=== PATIENT | male | born 1985 | race African-American/Black ===

== ENCOUNTER 2021-05-13 04:14 | Emergency (ER) | payer BC, SELFPAY ==
[2021-05-13 04:35] LABS: #Monocytes 0.4 10x3/uL (0.0-1.1); #Neutrophils 5.2 10x3/uL (1.5-8.4); %Basophils 0.4 % (0.0-2.0); %Eosinophils 0.4 % (0.0-6.0); %Lymphocytes 22.3 % (18.0-47.0); %Monocytes 5.6 % (0.0-10.0); %Neutrophils 70.1 % (40.0-75.0); Hemoglobin 13.6 g/dL (13.5-17.5); Mean Corpuscular HGB CONC 32.2 g/dL (32.0-36.0); Mean Corpuscular Hemoglobin 29.3 pg (27.0-33.0); Mean Corpuscular Volume 90.9 fl (81.2-95.1); Mean Platelet Volume 9.8 fl (7.4-10.4); Platelet Count 359 10x3/uL (150-450); RBC Distribution Width 12.3 % (11.5-14.5); Red Blood Cell (RBC) Count 4.64 10x6/uL (4.32-5.72); White Blood Cell (WBC) Count 7.4 10x3/uL (3.5-10.5)
[2021-05-13 06:01] LABS: Acetaminophen Less than 6.0 mcg/mL (10.0-30.0); Alcohol 190 mg/dL (Less than 10); CK (CPK) 308 U/L (30-200); Salicylate Less than 8.0 mg/dL (15.0-30.0)
[2021-05-13 06:02] LABS: ALT (SGPT) 44 U/L (8-55); AST (SGOT) 25 U/L (5-34); Alkaline Phosphatase 76 U/L (40-110); Anion Gap 13 mmol/L (10-20); BUN (Urea Nitrogen) 8 mg/dL (8.9-20.6); Bilirubin, Total 0.2 mg/dL (0.2-1.2); Calc. Creatinine Clearance 0 mL/min (70-130); Calcium 8.5 mg/dL (7.8-10.44); Carbon Dioxide 23 mmol/L (22-29); Chloride 108 mmol/L (98-107); Globulin 4.4 g/dL (2.4-3.5); Glucose 132 mg/dL (70-105); Magnesium 2.2 mg/dL (1.6-2.6); Potassium 4.6 mmol/L (3.5-5.1); Protein, Total 8.4 g/dL (6.0-8.3); Sodium 139 mmol/L (136-145)
[2021-05-13] MEDS ORDERED: Ampicillin/Sulbactam 1.5 GM in Sodium Chloride 0.9% 100 ML IVPB SCH (07:00)
== END 2021-05-13 12:43 | disposition home or self-care (01) ==
LOC: EDBD 04:14 → CSHERS 04:14
DX: F10.129 Alcohol abuse with intoxication, unspecified (principal)
CPT/HCPCS: 36415; 70450; 71045; 80053; 80307; 82550; 83735; 84443; 84484; 85025; 93005; 94760; 96365; J0295; J3490

== ENCOUNTER 2022-03-27 10:00 | Outpatient (CLI) | payer BC ==
[2022-03-27] MEDS ORDERED: Iopamidol 300 61% 100 ML VIAL FS ONE (10:49)
== END 2022-03-27 10:01 | disposition home or self-care (01) ==
LOC: CSHCT 10:00
PROVIDERS: ATTEND Family Medicine
DX: R10.9 Unspecified abdominal pain (principal); Z90.49 Acquired absence of other specified parts of digestive tract; N28.1 Cyst of kidney, acquired; K42.9 Umbilical hernia without obstruction or gangrene
CPT/HCPCS: 74177